=== PATIENT | male | born 1955 | race Caucasian/White ===

== ENCOUNTER 2016-10-09 19:41 | Emergency (ER) | payer BC ==
--- NOTE | 2016-10-09 20:52 | DIAGNOSTIC IMAGING REPORT ---
PROCEDURE: XR FINGER - LEFT (thumb). INDICATION: Injury (axe injury). TECHNIQUE: Three views. COMPARISON: None. FINDINGS: Overlying soft tissue bandage and wound obscures some of the detail. There is a subtle cortical fracture of the tuft of the distal phalanx, left thumb. The rest of the osseous structures and joint spaces are normal. IMPRESSION: 1. Findings suggest a subtle cortical fracture of the tuft of the distal phalanx, left thumb (open fracture). 2. Findings discussed with AINSLEY Gibson.
--- NOTE | 2016-10-09 21:31 | ED ORDER SUMMARY ---
..... Patient: NICHOLAS GONZALEZ OrderSheet [facility] VisitID: [id number] [place] [address] 61y, M Registration Date/Time: 10/09/2016 ORDER SHEET Weight: 97.5 kg (stated) Allergies: No Known Drug Allergy GENERAL ORDERS: Finger Left (Thumb) Urgent (20:17 10/09/2016 Mindy R.N. verbal order read back to HBivens A.R.N.P.) (Ack 20:18 AMcQuoid ER Tech1) (20:25 AMcQuoid ER Tech1) Dress Wounds (xeroform and tube gauze) (21:23 10/09/2016 HBivens A.R.N.P.) (22:05 SRoberts R.N.) Splint (Finger) (Left) (Thumb) (4 prong) (21:24 10/09/2016 HBivens A.R.N.P.) (22:05 SRoberts R.N.) MEDICATION ORDERS: Ceftriaxone IM 1 gm (NOW) (21:23 10/09/2016 HBivens A.R.N.P.) (Ack 21:49 SRoberts R.N.) (22:05 SRoberts R.N.) Tdap IM 0.5 mL (NOW, per protocol) (21:32 10/09/2016 HBivens A.R.N.P.) (Ack 21:49 SRoberts R.N.) (22:07 SRoberts R.N.) IV FLUIDS: ORDER SHEET NOTES: [Electronically signed by Ai Pearl R.N. (22:09 10/09/2016)] [Electronically signed by Marietta Hernández.R.N.P. (23:49 10/09/2016)] [Electronically locked/signed by Ai Pearl R.N. (22:10/09/2016)]
--- NOTE | 2016-10-09 21:31 | ED NURSING NOTES ---
Clinical Report - Nurses [facility] [place] [address] 10/09/2016 19:45 Patient: NICHOLAS GONZALEZ TRIAGE Triage time 20:15 Oct 09 2016. Acuity: LEVEL 3. Chief Complaint: INJURY TO LEFT HAND. INJURY TO THE LEFT THUMB WITH PARTIAL AMPUTATION. LILI COMA SCORE: [place] Coma Scale: 15- eyes open spontaneously (4); best verbal response- oriented x 4 (5); best motor response- obeys commands (6). --20:24 Mauricio Kam R.N. 20:19 10/09/16. BP: 119/104. HR: 71. RR: 16. O2 saturation: 99% on room air. Temp: 98.3 F. Pain level now: 10. Additional comments: (L) Thumb. --20:24 Mauricio Kam R.N. Weight: 97.5 kg stated. Height/Length: 74 inches Per Patient. BMI: 27.6. --20:21 Mauricio Kam R.N. Medications None. --20:25 Mauricio Kam R.N. Medication/allergy information source: the patient. --20:24 Mauricio Kam R.N. Allergies No Known Drug Allergy. --20:25 Mauricio Kam R.N. History Arrived by private vehicle. Historian: patient. Unaccompanied. Primary physician (none). ( Laceration (L) Thumb from an ax blow while holding a piece of wood.). This occurred (about 3 hours ago). Occurred (while camping). He sustained a laceration. 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 --20:24 Mauricio Kam R.N. PAST MEDICAL HX: Tetanus status: unknown. Immunizations: status is unknown. SOCIAL HX: Never smoker. No alcohol use or drug use. No infectious disease exposure. ABUSE ASSESSMENT: No report of abuse. FALL RISK ASSESSMENT: Fall risk assessment completed. No fall risk identified. NUTRITIONAL RISK ASSESSMENT: The nutritional risk assessment revealed no deficiencies. FUNCTIONAL ASSESSMENT: Functional assessment: no impairments noted. LEARNING NEEDS ASSESSMENT: The learning needs assessment revealed no barriers. SKIN INTEGRITY ASSESSMENT: Skin integrity risk assessment completed. No skin integrity risk identified. --20:26 Mauricio Kam R.N. PAST MEDICAL HX: Tetanus status: more than 5 years ago. --20:27 Mauricio Kam R.N. Interventions ID band on patient. To treatment room. --20:24 Mauricio Kam R.N. PHYSICAL ASSESSMENT Ambulatory to room. GENERAL / NEURO / PSYCH: Oriented X 4. Appears in pain. EXTREMITIES: Capillary refill is less than 2 seconds in the extremities. Extremity pulses are within normal limits. Extremities exhibit normal ROM. Tip of left thumb: deep laceration. SKIN: Skin intact. Skin is warm and dry. --20:24 Mauricio Kam R.N. NURSING PROGRESS NOTES Reassurance given. Patient identifiers checked. Call light placed in reach. Patient ready for evaluation- chart flagged and ED physician notified. --20:25 Mauricio Kam R.N. 21:52 10/09/2016 TDAP IM 0.5 mL given. (Lot#: [id number], expiration date: 09/05/2017). Given in the left deltoid. Allergies verified and confirmed 5 rights. Vaccine information statement provided to the patient. --22:07 Ai Pearl R.N. 21:55 10/09/2016 Ceftriaxone IM 1 gm given. Given in the right gluteus kerline. Allergies verified and confirmed 5 rights. --22:05 Ai Pearl R.N. DISPOSITION / DISCHARGE 22:10/09/16. Condition at departure: improved. No learning barriers present. Discharge instructions provided and reviewed with the patient. Reviewed medication(s) side effects, precautions, dosing and course information. Prescription(s) given to the patient. Reviewed referral to an orthopedic surgeon for followup. Patient verbalized understanding. Written instructions provided in Uzbek. The patient was discharged home. He left the Emergency Department ambulatory and via private vehicle. Patient driving. Medication list reviewed and validated. --22:08 Ai Pearl R.N. 22:07 10/09/16. BP: 122/94. HR: 88. RR: 20. O2 saturation: 98%. Temp: deferred. Pain level now: 05/03. 20:19 10/09/16. BP: 119/104. HR: 71. RR: 16. O2 saturation: 99% on room air. Temp: 98.3 F. Pain level now: 07/01. Additional comments: (L) Thumb. --22:08 Ai Pearl R.N. Locked/Released at 10/09/2016 22:09 by Ai Pearl R.N.
--- NOTE | 2016-10-09 21:31 | ED CLINICAL REPORT ---
Clinical Report - Physicians/Mid Levels [facility] [address] [place] [address] 10/09/2016 19:45 Patient: NICHOLAS GONZALEZ Time Seen: 2100; initial patient contact, initial documentation, patient care assumed. Arrived- By private vehicle. Historian- patient. HISTORY OF PRESENT ILLNESS Chief Complaint: Injury to the left thumb. The injury happened just prior to arrival about 3 hours ago. (camp site). The patient sustained a laceration from a sharp edge (ax). Patient is experiencing mild pain. Patient denies injury to the head or neck. ( holding piece of wood and friend was using ax, and got his thumb, took part of his thumb off). REVIEW OF SYSTEMS The patient sustained a laceration. No swelling, tingling, numbness, weakness or foreign body. All systems otherwise negative, except as recorded above. PAST HISTORY Negative. The patient's dominant hand is the right. Tetanus immunization status is unknown. SOCIAL HISTORY Never smoker. No alcohol use or drug use. No recent travel. Is a local resident. FAMILY HISTORY No significant family medical history. ADDITIONAL NOTES The nursing notes have been reviewed with agreement regarding the chief complaint, HPI, ROS, PMH and patient medications and allergies. PHYSICAL EXAM Vital Signs: 10/09/2016 20:19 BP: 119/104. HR: 71. RR: 16. O2 saturation: 99%. Temp: 98.3 F. Pain level now: 07/01. Have been reviewed as abnormal and appear to be correct. Hypertensive. Heart rate normal. Respiratory rate normal. Temperature normal. Oxygen saturation normal. Appearance: Alert. Oriented X3. No acute distress. Head: Head atraumatic. Eyes: Pupils equal, round and reactive to light. Eyes normal inspection. Respiratory: No respiratory distress. Skin: Skin warm and dry. Skin intact. Extremities: Hand injury present. Tip of left thumb: mild tenderness partial thickness tip amputation present; partial loss of the nail bed. No erythema, swelling, laceration of tip of left thumb, puncture wound or foreign body. No subungual hematoma, nail avulsion or exposed bone on the left thumb. No wrist injury. Hand and wrist exam otherwise negative. Extremities otherwise negative. Neuro, Vascular and Tendons: Vascular status intact. Sensation intact. Motor intact. Tendon function intact. Neuro: Oriented X 3. No motor deficit. No sensory deficit. Note: isolated injury to thumb. LABS, X-RAYS, AND EKG X-Rays: Left digit(s). Lt UE Digits X-ray: (IMPRESSION: 1. Findings suggest a subtle cortical fracture of the tuft of the distal phalanx, left thumb (open fracture). 2. Findings discussed with AINSLEY Gibson. Electronically Final signed by:Yonis Long MD 10/09/2016 8:47:17 PM). The X-rays were interpreted by the radiologist and contemporaneously by me. PROGRESS AND PROCEDURES Digital Nerve Block - Finger: Digital nerve block performed on the left thumb. Web space, dorsal and volar approach utilized. Landmarks identified. Skin prepped. Total volume of 4 mL 1% Lidocaine and 0.5% Marcaine infiltrated via a single puncture using a 27-gauge needle. Patient cooperative during procedure. No complications encountered. Excellent anesthesia achieved. Course of Care: 10/09/2016 22:07 BP: 122/94. HR: 88. RR: 20. O2 saturation: 98%. Pain level now: 1/10. Vital Signs: have been reviewed as normal and appear to be correct. Patient counseled in person regarding the patient's stable condition, test results and diagnosis. 21:30 xrays shown. Differential Diagnosis: Other possible considerations: thumb amputation, skin avulsion, open fx. Above considerations are based on history, physical exam, reassessment and X-Ray data. Differential diagnosis was discussed with patient. Disposition: Discharged home in good and improved condition (21:30). Condition: good and stable. CLINICAL IMPRESSION Single deep skin avulsion of the left thumb.Treatment not delayed. No infection present or foreign body present. INSTRUCTIONS Protect wound and keep wound area clean. (if follow up can not be done in 48 hrs, then, remove our bandage and start washing wound twice daily with soap and water). Leave dressing in place until seen in follow-up. Warnings: TETANUS: You were given a tetanus shot during your visit. Make a note for future reference. GENERAL WARNINGS: Return or contact your physician immediately if your condition worsens or changes unexpectedly, if not improving as expected, or if other problems arise. Specifically return if problem worsens. Prescription Medications: Cephalexin 500 mg: take 1 capsule orally every 12 hours for 10 days. No refill. [place] 5 mg / 325 mg tablets: take 1 to 2 orally every 6 hours as needed for pain. Dispense fifteen (15). No refills. Substitution is permissible. Follow-up: Blood pressure screening was not performed during this visit because blood pressure screening was precluded by clinical urgency. Understanding of the discharge instructions verbalized by patient. Follow-up with: [place] Tang MD, Orthopedic Surgeon, , [address], , [place], [id number]; Ryan Ayon MD, Orthopedic Surgeon, , [address] [place] [id number] Follow up tomorrow even if well. Call for an appointment. Summary of care provided to patient. (Electronically signed by Marietta Hernández A.R.N.P. 10/09/2016 23:49)
--- NOTE | 2016-10-09 21:31 | ED CLINICAL REPORT ---
Clinical Report - Physicians/Mid Levels [facility] [address] [place] [address] 10/09/2016 19:45 Patient: NICHOLAS GONZALEZ Time Seen: 2100; initial patient contact, initial documentation, patient care assumed. Arrived- By private vehicle. Historian- patient. HISTORY OF PRESENT ILLNESS Chief Complaint: Injury to the left thumb. The injury happened just prior to arrival about 3 hours ago. (camp site). The patient sustained a laceration from a sharp edge (ax). Patient is experiencing mild pain. Patient denies injury to the head or neck. ( holding piece of wood and friend was using ax, and got his thumb, took part of his thumb off). REVIEW OF SYSTEMS The patient sustained a laceration. No swelling, tingling, numbness, weakness or foreign body. All systems otherwise negative, except as recorded above. PAST HISTORY Negative. The patient's dominant hand is the right. Tetanus immunization status is unknown. SOCIAL HISTORY Never smoker. No alcohol use or drug use. No recent travel. Is a local resident. FAMILY HISTORY No significant family medical history. ADDITIONAL NOTES The nursing notes have been reviewed with agreement regarding the chief complaint, HPI, ROS, PMH and patient medications and allergies. PHYSICAL EXAM Vital Signs: 10/09/2016 20:19 BP: 119/104. HR: 71. RR: 16. O2 saturation: 99%. Temp: 98.3 F. Pain level now: 07/01. Have been reviewed as abnormal and appear to be correct. Hypertensive. Heart rate normal. Respiratory rate normal. Temperature normal. Oxygen saturation normal. Appearance: Alert. Oriented X3. No acute distress. Head: Head atraumatic. Eyes: Pupils equal, round and reactive to light. Eyes normal inspection. Respiratory: No respiratory distress. Skin: Skin warm and dry. Skin intact. Extremities: Hand injury present. Tip of left thumb: mild tenderness partial thickness tip amputation present; partial loss of the nail bed. No erythema, swelling, laceration of tip of left thumb, puncture wound or foreign body. No subungual hematoma, nail avulsion or exposed bone on the left thumb. No wrist injury. Hand and wrist exam otherwise negative. Extremities otherwise negative. Neuro, Vascular and Tendons: Vascular status intact. Sensation intact. Motor intact. Tendon function intact. Neuro: Oriented X 3. No motor deficit. No sensory deficit. Note: isolated injury to thumb. LABS, X-RAYS, AND EKG X-Rays: Left digit(s). Lt UE Digits X-ray: (IMPRESSION: 1. Findings suggest a subtle cortical fracture of the tuft of the distal phalanx, left thumb (open fracture). 2. Findings discussed with AINSLEY Gibson. Electronically Final signed by:Yonis Long MD 10/09/2016 8:47:17 PM). The X-rays were interpreted by the radiologist and contemporaneously by me. PROGRESS AND PROCEDURES Digital Nerve Block - Finger: Digital nerve block performed on the left thumb. Web space, dorsal and volar approach utilized. Landmarks identified. Skin prepped. Total volume of 4 mL 1% Lidocaine and 0.5% Marcaine infiltrated via a single puncture using a 27-gauge needle. Patient cooperative during procedure. No complications encountered. Excellent anesthesia achieved. Course of Care: 10/09/2016 22:07 BP: 122/94. HR: 88. RR: 20. O2 saturation: 98%. Pain level now: 1/10. Vital Signs: have been reviewed as normal and appear to be correct. Patient counseled in person regarding the patient's stable condition, test results and diagnosis. 21:30 xrays shown. Differential Diagnosis: Other possible considerations: thumb amputation, skin avulsion, open fx. Above considerations are based on history, physical exam, reassessment and X-Ray data. Differential diagnosis was discussed with patient. Disposition: Discharged home in good and improved condition (21:30). Condition: good and stable. CLINICAL IMPRESSION Single deep skin avulsion of the left thumb.Treatment not delayed. No infection present or foreign body present. INSTRUCTIONS Protect wound and keep wound area clean. (if follow up can not be done in 48 hrs, then, remove our bandage and start washing wound twice daily with soap and water). Leave dressing in place until seen in follow-up. Warnings: TETANUS: You were given a tetanus shot during your visit. Make a note for future reference. GENERAL WARNINGS: Return or contact your physician immediately if your condition worsens or changes unexpectedly, if not improving as expected, or if other problems arise. Specifically return if problem worsens. Prescription Medications: Cephalexin 500 mg: take 1 capsule orally every 12 hours for 10 days. No refill. [place] 5 mg / 325 mg tablets: take 1 to 2 orally every 6 hours as needed for pain. Dispense fifteen (15). No refills. Substitution is permissible. Follow-up: Blood pressure screening was not performed during this visit because blood pressure screening was precluded by clinical urgency. Understanding of the discharge instructions verbalized by patient. Follow-up with: [place] Tang MD, Orthopedic Surgeon, , [address], , [place], [id number]; Ryan Ayon MD, Orthopedic Surgeon, , [address] [place] [phone] Follow up tomorrow even if well. Call for an appointment. Summary of care provided to patient. (Electronically signed by Marietta Hernández A.R.N.P. 10/09/2016 23:49)
--- NOTE | 2016-10-09 21:31 | ED NURSING NOTES ---
Clinical Report - Nurses [facility] [place] [address] 10/09/2016 19:45 Patient: NICHOLAS GONZALEZ TRIAGE Triage time 20:15 Oct 09 2016. Acuity: LEVEL 3. Chief Complaint: INJURY TO LEFT HAND. INJURY TO THE LEFT THUMB WITH PARTIAL AMPUTATION. LILI COMA SCORE: [place] Coma Scale: 15- eyes open spontaneously (4); best verbal response- oriented x 4 (5); best motor response- obeys commands (6). --20:24 Mauricio Kam R.N. 20:19 10/09/16. BP: 119/104. HR: 71. RR: 16. O2 saturation: 99% on room air. Temp: 98.3 F. Pain level now: 10. Additional comments: (L) Thumb. --20:24 Mauricio Kam R.N. Weight: 97.5 kg stated. Height/Length: 74 inches Per Patient. BMI: 27.6. --20:21 Mauricio Kam R.N. Medications None. --20:25 Mauricio Kam R.N. Medication/allergy information source: the patient. --20:24 Mauricio Kam R.N. Allergies No Known Drug Allergy. --20:25 Mauricio Kam R.N. History Arrived by private vehicle. Historian: patient. Unaccompanied. Primary physician (none). ( Laceration (L) Thumb from an ax blow while holding a piece of wood.). This occurred (about 3 hours ago). Occurred (while camping). He sustained a laceration. 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 --20:24 Mauricio Kam R.N. PAST MEDICAL HX: Tetanus status: unknown. Immunizations: status is unknown. SOCIAL HX: Never smoker. No alcohol use or drug use. No infectious disease exposure. ABUSE ASSESSMENT: No report of abuse. FALL RISK ASSESSMENT: Fall risk assessment completed. No fall risk identified. NUTRITIONAL RISK ASSESSMENT: The nutritional risk assessment revealed no deficiencies. FUNCTIONAL ASSESSMENT: Functional assessment: no impairments noted. LEARNING NEEDS ASSESSMENT: The learning needs assessment revealed no barriers. SKIN INTEGRITY ASSESSMENT: Skin integrity risk assessment completed. No skin integrity risk identified. --20:26 Mauricio Kam R.N. PAST MEDICAL HX: Tetanus status: more than 5 years ago. --20:27 Mauricio Kam R.N. Interventions ID band on patient. To treatment room. --20:24 Mauricio Kam R.N. PHYSICAL ASSESSMENT Ambulatory to room. GENERAL / NEURO / PSYCH: Oriented X 4. Appears in pain. EXTREMITIES: Capillary refill is less than 2 seconds in the extremities. Extremity pulses are within normal limits. Extremities exhibit normal ROM. Tip of left thumb: deep laceration. SKIN: Skin intact. Skin is warm and dry. --20:24 Mauricio Kam R.N. NURSING PROGRESS NOTES Reassurance given. Patient identifiers checked. Call light placed in reach. Patient ready for evaluation- chart flagged and ED physician notified. --20:25 Mauricio Kam R.N. 21:52 10/09/2016 TDAP IM 0.5 mL given. (Lot#: [id number], expiration date: 09/05/2017). Given in the left deltoid. Allergies verified and confirmed 5 rights. Vaccine information statement provided to the patient. --22:07 Ai Pearl R.N. 21:55 10/09/2016 Ceftriaxone IM 1 gm given. Given in the right gluteus kerline. Allergies verified and confirmed 5 rights. --22:05 Ai Pearl R.N. DISPOSITION / DISCHARGE 22:10/09/16. Condition at departure: improved. No learning barriers present. Discharge instructions provided and reviewed with the patient. Reviewed medication(s) side effects, precautions, dosing and course information. Prescription(s) given to the patient. Reviewed referral to an orthopedic surgeon for followup. Patient verbalized understanding. Written instructions provided in Polish. The patient was discharged home. He left the Emergency Department ambulatory and via private vehicle. Patient driving. Medication list reviewed and validated. --22:08 Ai Pearl R.N. 22:07 10/09/16. BP: 122/94. HR: 88. RR: 20. O2 saturation: 98%. Temp: deferred. Pain level now: 05/03. 20:19 10/09/16. BP: 119/104. HR: 71. RR: 16. O2 saturation: 99% on room air. Temp: 98.3 F. Pain level now: 07/01. Additional comments: (L) Thumb. --22:08 Ai Pearl R.N. Locked/Released at 10/09/2016 22:09 by Ai Pearl R.N.
--- NOTE | 2016-10-09 21:31 | ED ORDER SUMMARY ---
..... Patient: NICHOLAS GONZALEZ OrderSheet [facility] VisitID: [id number] [place] [address] 61y, M Registration Date/Time: 10/09/2016 ORDER SHEET Weight: 97.5 kg (stated) Allergies: No Known Drug Allergy GENERAL ORDERS: Finger Left (Thumb) Urgent (20:17 10/09/2016 Mindy R.N. verbal order read back to HBivens A.R.N.P.) (Ack 20:18 AMcQuoid ER Tech1) (20:25 AMcQuoid ER Tech1) Dress Wounds (xeroform and tube gauze) (21:23 10/09/2016 HBivens A.R.N.P.) (22:05 SRoberts R.N.) Splint (Finger) (Left) (Thumb) (4 prong) (21:24 10/09/2016 HBivens A.R.N.P.) (22:05 SRoberts R.N.) MEDICATION ORDERS: Ceftriaxone IM 1 gm (NOW) (21:23 10/09/2016 HBivens A.R.N.P.) (Ack 21:49 SRoberts R.N.) (22:05 SRoberts R.N.) Tdap IM 0.5 mL (NOW, per protocol) (21:32 10/09/2016 HBivens A.R.N.P.) (Ack 21:49 SRoberts R.N.) (22:07 SRoberts R.N.) IV FLUIDS: ORDER SHEET NOTES: [Electronically signed by Ai Pearl R.N. (22:09 10/09/2016)] [Electronically signed by Marietta Hernández.R.N.P. (23:49 10/09/2016)] [Electronically locked/signed by Ai Pearl R.N. (22:10/09/2016)]
--- NOTE | 2016-10-09 23:50 | ED DISCHARGE INSTRUCTIONS ---
Patient: NICHOLAS GONZALEZ General Instructions [facility] VisitID: [id number] [address], [place], [place] [id number] 61y, M Registration Date/Time: 10/09/2016 Single deep skin avulsion of the left thumb.Treatment not delayed. No infection present or foreign body present. INSTRUCTIONS Protect wound and keep wound area clean. (if follow up can not be done in 48 hrs, then, remove our bandage and start washing wound twice daily with soap and water). Leave dressing in place until seen in follow-up. Warnings: TETANUS: You were given a tetanus shot during your visit. Make a note for future reference. GENERAL WARNINGS: Return or contact your physician immediately if your condition worsens or changes unexpectedly, if not improving as expected, or if other problems arise. Specifically return if problem worsens. Prescription Medications: Cephalexin 500 mg: take 1 capsule orally every 12 hours for 10 days. No refill. [place] 5 mg / 325 mg tablets: take 1 to 2 orally every 6 hours as needed for pain. Dispense fifteen (15). No refills. Substitution is permissible. Follow-up: Blood pressure screening was not performed during this visit because blood pressure screening was precluded by clinical urgency. Understanding of the discharge instructions verbalized by patient. Follow-up with: Don Tang MD, Orthopedic Surgeon, , [id number], , [place], [id number]; Ryan Ayon MD, Orthopedic Surgeon, , [address] , [place] [address] Follow up tomorrow even if well. Call for an appointment. Summary of care provided to patient. ADDITIONAL INFORMATION Diphtheria Toxoid Adsorbed, Pertussis Vaccine, Acellular (Adsorbed), Tetanus Toxoid, Adsorbed Suspension for injection What is this medicine? DIPHTHERIA and TETANUS TOXOIDS; PERTUSSIS VACCINE (dif THEER ee uh and TET n us TOK soids; per TUS iss vak SEEN) is used to prevent diphtheria, tetanus, and pertussis infections. How should I use this medicine? This vaccine is for injection into a muscle. It is given by a health health care law specialist. A copy of Vaccine Information Statements will be given before each vaccination. Read this sheet carefully each time. The sheet may change frequently. Talk to your toddler lead teacher regarding the use of this vaccine in children. While the DTP vaccine may be given to children ages 6 weeks to 7 years and the Tdap vaccine may be given to children at least 10 years old, precautions do apply. What side effects may I notice from receiving this medicine? Side effects that you should report to your doctor or health health care law specialist as soon as possible: allergic reactions like skin rash, itching or hives, swelling of the face, lips, or tongue breathing problems fever of 103 degrees F or more flu-like symptoms inconsolable crying infection pain, tingling, numbness in the hands or feet seizures swelling of arm or leg that was injected unusually weak or tired Side effects that usually do not require immediate medical attention (report these side effects to your doctor or health health care law specialist if they continue or are bothersome): fussy, irritable loss of appetite fever of 102 degrees F or less pain, tenderness, redness, swelling, or a 'knot' at site where injected vomiting What may interact with this medicine? immune globulin medicines that suppress your immune function like adalimumab, anakinra, infliximab medicines to treat cancer medicines that treat or prevent blood clots like warfarin, enoxaparin, and dalteparin steroid medicines like prednisone or cortisone What if I miss a dose? It is important not to miss your dose. Call your doctor or health health care law specialist if you are unable to keep an appointment. Where should I keep my medicine? This drug is given in a hospital or clinic and will not be stored at home. What should I tell my health care provider before I take this medicine? They need to know if you have any of these conditions: blood disorders like hemophilia fever or infection immune system problems neurologic disease seizures an unusual or allergic reaction to vaccines, thimerosal, latex, other medicines, foods, dyes, or preservatives or trying to get breast-feeding What should I watch for while using this medicine? See your health care provider for all shots of this vaccine as directed. To have protection from infection, you must have 3 shots of this vaccine plus boosters as needed. Tell your doctor right away if you have any serious or unusual side effects after getting this vaccine. Cephalexin Monohydrate Oral tablet What is this medicine? CEPHALEXIN (sef a BRET in) is a cephalosporin antibiotic. It is used to treat certain kinds of bacterial infections It will not work for colds, flu, or other viral infections. How should I use this medicine? Take this medicine by mouth with a full glass of water. Follow the directions on the prescription label. This medicine can be taken with or without food. Take your medicine at regular intervals. Do not take your medicine more often than directed. Take all of your medicine as directed even if you think you are better. Do not skip doses or stop your medicine early. Talk to your toddler lead teacher regarding the use of this medicine in children. While this drug may be prescribed for selected conditions, precautions do apply. What side effects may I notice from receiving this medicine? Side effects that you should report to your doctor or health health care law specialist as soon as possible: allergic reactions like skin rash, itching or hives, swelling of the face, lips, or tongue breathing problems pain or trouble passing urine redness, blistering, peeling or loosening of the skin, including inside the mouth severe or watery diarrhea unusually weak or tired yellowing of the eyes, skin Side effects that usually do not require medical attention (report to your doctor or health health care law specialist if they continue or are bothersome): gas or heartburn genital or anal irritation headache joint or muscle pain nausea, vomiting What may interact with this medicine? probenecid some other antibiotics What if I miss a dose? If you miss a dose, take it as soon as you can. If it is almost time for your next dose, take only that dose. Do not take double or extra doses. There should be at least 4 to 6 hours between doses. Where should I keep my medicine? Keep out of the reach of children. Store at room temperature between 59 and 86 degrees F (15 and 30 degrees C). Throw away any unused medicine after the expiration date. What should I tell my health care provider before I take this medicine? They need to know if you have any of these conditions: kidney disease stomach or intestine problems, especially colitis an unusual or allergic reaction to cephalexin, other cephalosporins, penicillins, other antibiotics, medicines, foods, dyes or preservatives or trying to get breast-feeding What should I watch for while using this medicine? Tell your doctor or health health care law specialist if your symptoms do not begin to improve in a few days. Do not treat diarrhea with over the counter products. Contact your doctor if you have diarrhea that lasts more than 2 days or if it is severe and watery. If you have diabetes, you may get a false-positive result for sugar in your urine. Check with your doctor or health health care law specialist. Hydrocodone Bitartrate, Acetaminophen Oral tablet What is this medicine? ACETAMINOPHEN; HYDROCODONE (a set a JOSE simone fen; néstor droe KOE done) is a pain reliever. It is used to treat mild to moderate pain. How should I use this medicine? Take this medicine by mouth. Swallow it with a full glass of water. Follow the directions on the prescription label. If the medicine upsets your stomach, take the medicine with food or milk. Do not take more than you are told to take. Talk to your toddler lead teacher regarding the use of this medicine in children. This medicine is not approved for use in children. What side effects may I notice from receiving this medicine? Side effects that you should report to your doctor or health health care law specialist as soon as possible: allergic reactions like skin rash, itching or hives, swelling of the face, lips, or tongue breathing problems confusion feeling faint or lightheaded, falls stomach pain yellowing of the eyes or skin Side effects that usually do not require medical attention (report to your doctor or health health care law specialist if they continue or are bothersome): nausea, vomiting stomach upset What may interact with this medicine? alcohol antihistamines isoniazid medicines for depression, anxiety, or psychotic disturbances medicines for sleep muscle relaxants naltrexone narcotic medicines (opiates) for pain phenobarbital ritonavir tramadol What if I miss a dose? If you miss a dose, take it as soon as you can. If it is almost time for your next dose, take only that dose. Do not take double or extra doses. Where should I keep my medicine? Keep out of the reach of children. This medicine can be abused. Keep your medicine in a safe place to protect it from theft. Do not share this medicine with anyone. Selling or giving away this medicine is dangerous and against the law. Store at room temperature between 15 and 30 degrees C (59 and 86 degrees F). Protect from light. Keep container tightly closed. Throw away any unused medicine after the expiration date. Discard unused medicine and used packaging carefully. Pets and children can be harmed if they find used or lost packages. What should I tell my health care provider before I take this medicine? They need to know if you have any of these conditions: brain tumor Crohn's disease, inflammatory bowel disease, or ulcerative colitis drink more than 3 alcohol-containing drinks per day drug abuse or addiction head injury heart or circulation problems kidney disease or problems going to the bathroom liver disease lung disease, asthma, or breathing problems an unusual or allergic reaction to acetaminophen, hydrocodone, other opioid analgesics, other medicines, foods, dyes, or preservatives or trying to get breast-feeding What should I watch for while using this medicine? Tell your doctor or health health care law specialist if your pain does not go away, if it gets worse, or if you have new or a different type of pain. You may develop tolerance to the medicine. Tolerance means that you will need a higher dose of the medicine for pain relief. Tolerance is normal and is expected if you take the medicine for a long time. Do not suddenly stop taking your medicine because you may develop a severe reaction. Your body becomes used to the medicine. This does NOT mean you are addicted. Addiction is a behavior related to getting and using a drug for a non-medical reason. If you have pain, you have a medical reason to take pain medicine. Your doctor will tell you how much medicine to take. If your doctor wants you to stop the medicine, the dose will be slowly lowered over time to avoid any side effects. You may get drowsy or dizzy when you first start taking the medicine or change doses. Do not drive, use machinery, or do anything that may be dangerous until you know how the medicine affects you. Stand or sit up slowly. There are different types of narcotic medicines (opiates) for pain. If you take more than one type at the same time, you may have more side effects. Give your health care provider a list of all medicines you use. Your doctor will tell you how much medicine to take. Do not take more medicine than directed. Call emergency for help if you have problems breathing. The medicine will cause constipation. Try to have a bowel movement at least every 2 to 3 days. If you do not have a bowel movement for 3 days, call your doctor or health health care law specialist. Too much acetaminophen can be very dangerous. Do not take Tylenol (acetaminophen) or medicines that contain acetaminophen with this medicine. Many non-prescription medicines contain acetaminophen. Always read the labels carefully. You have been given the following additional information: Diphtheria Toxoid Adsorbed, Pertussis Vaccine, Acellular (Adsorbed), Tetanus Toxoid, Adsorbed Suspension for injection Cephalexin Monohydrate Oral tablet Hydrocodone Bitartrate, Acetaminophen Oral tablet (Electronically signed by Marietta Hernández A.R.N.P. 10/09/2016 23:49)
--- NOTE | 2016-10-09 23:50 | ED MAR SUMMARY ---
..... Medication Administration Record [facility] [address] [address] Patient: NICHOLAS GONZALEZ Visit ID: [id number] 61y, M Weight: 97.5 kg Height/Length: 74 in BMI: 27.6 ALLERGIES: No Known Drug Allergy Given 21:52 10/09/2016 Ai Pearl R.N. Medication Administered: TDAP [IM], Dose: 0.5 mL IM. Medication Ordered: Tdap IM 0.5 mL (NOW, per protocol). Given 21:55 10/09/2016 Ai Pearl R.N. Medication Administered: CEFTRIAXONE [IM], Dose: 1 gm IM. Medication Ordered: Ceftriaxone IM 1 gm (NOW).
--- NOTE | 2016-10-09 23:50 | ED DISCHARGE INSTRUCTIONS ---
Patient: NICHOLAS GONZALEZ General Instructions [facility] VisitID: [id number] [address], [place], [place] [id number] 61y, M Registration Date/Time: 10/09/2016 Single deep skin avulsion of the left thumb.Treatment not delayed. No infection present or foreign body present. INSTRUCTIONS Protect wound and keep wound area clean. (if follow up can not be done in 48 hrs, then, remove our bandage and start washing wound twice daily with soap and water). Leave dressing in place until seen in follow-up. Warnings: TETANUS: You were given a tetanus shot during your visit. Make a note for future reference. GENERAL WARNINGS: Return or contact your physician immediately if your condition worsens or changes unexpectedly, if not improving as expected, or if other problems arise. Specifically return if problem worsens. Prescription Medications: Cephalexin 500 mg: take 1 capsule orally every 12 hours for 10 days. No refill. [place] 5 mg / 325 mg tablets: take 1 to 2 orally every 6 hours as needed for pain. Dispense fifteen (15). No refills. Substitution is permissible. Follow-up: Blood pressure screening was not performed during this visit because blood pressure screening was precluded by clinical urgency. Understanding of the discharge instructions verbalized by patient. Follow-up with: Don Tang MD, Orthopedic Surgeon, , [id number], , [place], [id number]; Ryan Ayon MD, Orthopedic Surgeon, , [address] , [place] [address] Follow up tomorrow even if well. Call for an appointment. Summary of care provided to patient. ADDITIONAL INFORMATION Diphtheria Toxoid Adsorbed, Pertussis Vaccine, Acellular (Adsorbed), Tetanus Toxoid, Adsorbed Suspension for injection What is this medicine? DIPHTHERIA and TETANUS TOXOIDS; PERTUSSIS VACCINE (dif THEER ee uh and TET n us TOK soids; per TUS iss vak SEEN) is used to prevent diphtheria, tetanus, and pertussis infections. How should I use this medicine? This vaccine is for injection into a muscle. It is given by a health furnace caretaker. A copy of Vaccine Information Statements will be given before each vaccination. Read this sheet carefully each time. The sheet may change frequently. Talk to your nurses' registry director regarding the use of this vaccine in children. While the DTP vaccine may be given to children ages 6 weeks to 7 years and the Tdap vaccine may be given to children at least 10 years old, precautions do apply. What side effects may I notice from receiving this medicine? Side effects that you should report to your doctor or health furnace caretaker as soon as possible: allergic reactions like skin rash, itching or hives, swelling of the face, lips, or tongue breathing problems fever of 103 degrees F or more flu-like symptoms inconsolable crying infection pain, tingling, numbness in the hands or feet seizures swelling of arm or leg that was injected unusually weak or tired Side effects that usually do not require immediate medical attention (report these side effects to your doctor or health furnace caretaker if they continue or are bothersome): fussy, irritable loss of appetite fever of 102 degrees F or less pain, tenderness, redness, swelling, or a 'knot' at site where injected vomiting What may interact with this medicine? immune globulin medicines that suppress your immune function like adalimumab, anakinra, infliximab medicines to treat cancer medicines that treat or prevent blood clots like warfarin, enoxaparin, and dalteparin steroid medicines like prednisone or cortisone What if I miss a dose? It is important not to miss your dose. Call your doctor or health furnace caretaker if you are unable to keep an appointment. Where should I keep my medicine? This drug is given in a hospital or clinic and will not be stored at home. What should I tell my health care provider before I take this medicine? They need to know if you have any of these conditions: blood disorders like hemophilia fever or infection immune system problems neurologic disease seizures an unusual or allergic reaction to vaccines, thimerosal, latex, other medicines, foods, dyes, or preservatives or trying to get breast-feeding What should I watch for while using this medicine? See your health care provider for all shots of this vaccine as directed. To have protection from infection, you must have 3 shots of this vaccine plus boosters as needed. Tell your doctor right away if you have any serious or unusual side effects after getting this vaccine. Cephalexin Monohydrate Oral tablet What is this medicine? CEPHALEXIN (sef a BRET in) is a cephalosporin antibiotic. It is used to treat certain kinds of bacterial infections It will not work for colds, flu, or other viral infections. How should I use this medicine? Take this medicine by mouth with a full glass of water. Follow the directions on the prescription label. This medicine can be taken with or without food. Take your medicine at regular intervals. Do not take your medicine more often than directed. Take all of your medicine as directed even if you think you are better. Do not skip doses or stop your medicine early. Talk to your nurses' registry director regarding the use of this medicine in children. While this drug may be prescribed for selected conditions, precautions do apply. What side effects may I notice from receiving this medicine? Side effects that you should report to your doctor or health furnace caretaker as soon as possible: allergic reactions like skin rash, itching or hives, swelling of the face, lips, or tongue breathing problems pain or trouble passing urine redness, blistering, peeling or loosening of the skin, including inside the mouth severe or watery diarrhea unusually weak or tired yellowing of the eyes, skin Side effects that usually do not require medical attention (report to your doctor or health furnace caretaker if they continue or are bothersome): gas or heartburn genital or anal irritation headache joint or muscle pain nausea, vomiting What may interact with this medicine? probenecid some other antibiotics What if I miss a dose? If you miss a dose, take it as soon as you can. If it is almost time for your next dose, take only that dose. Do not take double or extra doses. There should be at least 4 to 6 hours between doses. Where should I keep my medicine? Keep out of the reach of children. Store at room temperature between 59 and 86 degrees F (15 and 30 degrees C). Throw away any unused medicine after the expiration date. What should I tell my health care provider before I take this medicine? They need to know if you have any of these conditions: kidney disease stomach or intestine problems, especially colitis an unusual or allergic reaction to cephalexin, other cephalosporins, penicillins, other antibiotics, medicines, foods, dyes or preservatives or trying to get breast-feeding What should I watch for while using this medicine? Tell your doctor or health furnace caretaker if your symptoms do not begin to improve in a few days. Do not treat diarrhea with over the counter products. Contact your doctor if you have diarrhea that lasts more than 2 days or if it is severe and watery. If you have diabetes, you may get a false-positive result for sugar in your urine. Check with your doctor or health furnace caretaker. Hydrocodone Bitartrate, Acetaminophen Oral tablet What is this medicine? ACETAMINOPHEN; HYDROCODONE (a set a JOSE simone fen; néstor droe KOE done) is a pain reliever. It is used to treat mild to moderate pain. How should I use this medicine? Take this medicine by mouth. Swallow it with a full glass of water. Follow the directions on the prescription label. If the medicine upsets your stomach, take the medicine with food or milk. Do not take more than you are told to take. Talk to your nurses' registry director regarding the use of this medicine in children. This medicine is not approved for use in children. What side effects may I notice from receiving this medicine? Side effects that you should report to your doctor or health furnace caretaker as soon as possible: allergic reactions like skin rash, itching or hives, swelling of the face, lips, or tongue breathing problems confusion feeling faint or lightheaded, falls stomach pain yellowing of the eyes or skin Side effects that usually do not require medical attention (report to your doctor or health furnace caretaker if they continue or are bothersome): nausea, vomiting stomach upset What may interact with this medicine? alcohol antihistamines isoniazid medicines for depression, anxiety, or psychotic disturbances medicines for sleep muscle relaxants naltrexone narcotic medicines (opiates) for pain phenobarbital ritonavir tramadol What if I miss a dose? If you miss a dose, take it as soon as you can. If it is almost time for your next dose, take only that dose. Do not take double or extra doses. Where should I keep my medicine? Keep out of the reach of children. This medicine can be abused. Keep your medicine in a safe place to protect it from theft. Do not share this medicine with anyone. Selling or giving away this medicine is dangerous and against the law. Store at room temperature between 15 and 30 degrees C (59 and 86 degrees F). Protect from light. Keep container tightly closed. Throw away any unused medicine after the expiration date. Discard unused medicine and used packaging carefully. Pets and children can be harmed if they find used or lost packages. What should I tell my health care provider before I take this medicine? They need to know if you have any of these conditions: brain tumor Crohn's disease, inflammatory bowel disease, or ulcerative colitis drink more than 3 alcohol-containing drinks per day drug abuse or addiction head injury heart or circulation problems kidney disease or problems going to the bathroom liver disease lung disease, asthma, or breathing problems an unusual or allergic reaction to acetaminophen, hydrocodone, other opioid analgesics, other medicines, foods, dyes, or preservatives or trying to get breast-feeding What should I watch for while using this medicine? Tell your doctor or health furnace caretaker if your pain does not go away, if it gets worse, or if you have new or a different type of pain. You may develop tolerance to the medicine. Tolerance means that you will need a higher dose of the medicine for pain relief. Tolerance is normal and is expected if you take the medicine for a long time. Do not suddenly stop taking your medicine because you may develop a severe reaction. Your body becomes used to the medicine. This does NOT mean you are addicted. Addiction is a behavior related to getting and using a drug for a non-medical reason. If you have pain, you have a medical reason to take pain medicine. Your doctor will tell you how much medicine to take. If your doctor wants you to stop the medicine, the dose will be slowly lowered over time to avoid any side effects. You may get drowsy or dizzy when you first start taking the medicine or change doses. Do not drive, use machinery, or do anything that may be dangerous until you know how the medicine affects you. Stand or sit up slowly. There are different types of narcotic medicines (opiates) for pain. If you take more than one type at the same time, you may have more side effects. Give your health care provider a list of all medicines you use. Your doctor will tell you how much medicine to take. Do not take more medicine than directed. Call emergency for help if you have problems breathing. The medicine will cause constipation. Try to have a bowel movement at least every 2 to 3 days. If you do not have a bowel movement for 3 days, call your doctor or health furnace caretaker. Too much acetaminophen can be very dangerous. Do not take Tylenol (acetaminophen) or medicines that contain acetaminophen with this medicine. Many non-prescription medicines contain acetaminophen. Always read the labels carefully. You have been given the following additional information: Diphtheria Toxoid Adsorbed, Pertussis Vaccine, Acellular (Adsorbed), Tetanus Toxoid, Adsorbed Suspension for injection Cephalexin Monohydrate Oral tablet Hydrocodone Bitartrate, Acetaminophen Oral tablet (Electronically signed by Marietta Hernández A.R.N.P. 10/09/2016 23:49)
--- NOTE | 2016-10-09 23:50 | ED MAR SUMMARY ---
..... Medication Administration Record [facility] [address] [place] [address] Patient: NICHOLAS GONZALEZ Visit ID: [id number] 61y, M Weight: 97.5 kg Height/Length: 74 in BMI: 27.6 ALLERGIES: No Known Drug Allergy Given 21:52 10/09/2016 Ai Pearl R.N. Medication Administered: TDAP [IM], Dose: 0.5 mL IM. Medication Ordered: Tdap IM 0.5 mL (NOW, per protocol). Given 21:55 10/09/2016 Ai Pearl R.N. Medication Administered: CEFTRIAXONE [IM], Dose: 1 gm IM. Medication Ordered: Ceftriaxone IM 1 gm (NOW).
--- NOTE | 2016-10-09 23:50 | ED MED RECONCILIATION SUMMARY ---
Patient: NICHOLAS GONZALEZ Medication Reconciliation Report [facility] VisitID: [id number] [place] [address] 61y, M Registration Date/Time: 10/09/2016 Weight: 97.5 kg Height/Length: 74 in. BMI: 27.6 ALLERGIES: No Known Drug Allergy The patient's Home Medications are listed below: NONE. The source(s) of the original Home Medication information: patient The following Medications were given to the patient in the Emergency Department: Ceftriaxone [IM] IM 1 gm, administered: 10/09/2016 9:55:00 PM TDAP [IM] IM 0.5 mL, administered: 10/09/2016 9:52:00 PM The following Medications were prescribed to the patient: Cephalexin 500 mg: take 1 capsule orally every 12 hours for 10 days. No refill. -- Marietta Hernández, A.R.N.P. [place] 5 mg / 325 mg tablets: take 1 to 2 orally every 6 hours as needed for pain. Dispense fifteen (15). No refills. Substitution is permissible. -- Marietta Hernández, Gonzalo.R.N.P.
--- NOTE | 2016-10-09 23:50 | ED MED RECONCILIATION SUMMARY ---
Patient: NICHOLAS GONZALEZ Medication Reconciliation Report [facility] VisitID: [id number] [place] [address] 61y, M Registration Date/Time: 10/09/2016 Weight: 97.5 kg Height/Length: 74 in. BMI: 27.6 ALLERGIES: No Known Drug Allergy The patient's Home Medications are listed below: NONE. The source(s) of the original Home Medication information: patient The following Medications were given to the patient in the Emergency Department: Ceftriaxone [IM] IM 1 gm, administered: 10/09/2016 9:55:00 PM TDAP [IM] IM 0.5 mL, administered: 10/09/2016 9:52:00 PM The following Medications were prescribed to the patient: Cephalexin 500 mg: take 1 capsule orally every 12 hours for 10 days. No refill. -- Marietta Hernández, A.R.N.P. [place] 5 mg / 325 mg tablets: take 1 to 2 orally every 6 hours as needed for pain. Dispense fifteen (15). No refills. Substitution is permissible. -- Marietta Hernández, Gonzalo.R.N.P.
== END 2016-10-09 22:00 | disposition home or self-care (01) ==
LOC: ED SRH 19:41
DX: S61.112A Laceration without foreign body of left thumb with damage to nail, initial encounter (principal); W27.0XXA Contact with workbench tool, initial encounter; Y93.89 Activity, other specified; Y92.833 Campsite as the place of occurrence of the external cause; Y99.9 Unspecified external cause status